=== PATIENT | female | born 1950 ===

== ENCOUNTER → 2018-11-16 | Outpatient (CLI) | payer MEDICARE ==
[2018-11-17 14:39] LABS: Adenovirus F 40/41 Not Detected (NOT DETECT); Astrovirus Not Detected (NOT DETECT); Campylobacter Sp Not Detected (NOT DETECT); Cryptosporidium Not Detected (NOT DETECT); Cyclospora Cayetanensis Not Detected (NOT DETECT); E. Coli O157 Not Detected (NOT DETECT); Entamoeba Histolytica Not Detected (NOT DETECT); Enteroaggregative E. coli-EAEC Not Detected (NOT DETECT); Enteropathogenic E. coli-EPEC Not Detected (NOT DETECT); Enterotoxigenic E. coli-ETEC Not Detected (NOT DETECT); Giardia Lamblia Not Detected (NOT DETECT); Norovirus GI/GII Not Detected (NOT DETECT); Plesiomonas Shigelloides Not Detected (NOT DETECT); Rotavirus A Not Detected (NOT DETECT); Salmonella Sp Not Detected (NOT DETECT); Sapovirus Not Detected (NOT DETECT); Shiga Toxin-prod E. coli-STEC Not Detected (NOT DETECT); Shigella/Enteroin E. coli-EIEC Not Detected (NOT DETECT); Vibrio Cholerae Not Detected (NOT DETECT); Vibrio Sp Not Detected (NOT DETECT); Yersinia Enterocolitica Not Detected (NOT DETECT)
== END | disposition home or self-care (01) ==
LOC: LAB SHORT 07:53 → LAB 07:53 → LAB SHORT 11-17 07:53 → LAB FUT 11-16 17:20
PROVIDERS: Internal Medicine Gastroenterology
DX: K50.90 Crohn's disease, unspecified, without complications (principal)
CPT/HCPCS: 83993; 87507

== ENCOUNTER 2019-08-14 19:47 | Emergency (ER) | payer MEDICARE ==
[~2019-08-14] VITALS: Ht 177.8 cm; Wt 63.5 kg
[2019-08-14] MEDS ORDERED: LEVALBUTEROL TA15 GM (21:16)
[2019-08-14] MEDS ORDERED: SPIRIVA RESPIMAT4 GM IH (21:16)
[2019-08-14] MEDS ORDERED: TRAM50 (21:16)
== END 2019-08-14 21:53 | disposition home or self-care (01) ==
LOC: ER 19:47
DX: G43.909 Migraine, unspecified, not intractable, without status migrainosus (principal); Z88.2 Allergy status to sulfonamides; Z88.5 Allergy status to narcotic agent; Z79.899 Other long term (current) drug therapy
CPT/HCPCS: 36415; 96374; 96375; 99283-25; J0780; J1200; J1885; J7030

== ENCOUNTER 2020-05-17 16:42 | Emergency (ER) | payer MEDICARE ==
[~2020-05-17] VITALS: Ht 175.3 cm; Wt 73.5 kg
[~2020-05-17 16:42] MED LIST: ALBU90OI; AZIT250 PO; Imuran50 MG PO; LEVALBUTEROL TA15 GM; RIZATRIPTAN10 MG; SPIRIVA RESPIMAT4 GM IH; TRAM50; VITAMIN D-32000 UNIT PO
[2020-05-17 18:04] LABS: BASOPHILS ABSOLUTE AUTO 0.07 K/mm3 (0.00-0.23); BASOPHILS PERCENT AUTO 0 % (0-2); EOSINOPHILS PERCENT AUTO 1 % (0-6); Hematocrit 38.5 % (33.0-51.0); Hemoglobin 12.4 g/dL (11.5-16.0); IMMATURE GRAN ABSOLUTE AUTO 0.64 K/mm3 (0.00-0.10); IMMATURE GRAN PERCENT AUTO 4 % (0-1); LYMPHOCYTES ABSOLUTE AUTO 1.58 K/mm3 (0.84-5.20); LYMPHOCYTES PERCENT AUTO 9 % (21-46); MONOCYTES PERCENT AUTO 4 % (4-13); Mean Corpuscular HGB 30.5 pg (26.0-34.0); Mean Corpuscular HGB Conc 32.2 g/dL (31.5-36.5); Mean Corpuscular Volume 95 fL (80-100); NEUTROPHILS ABSOLUTE AUTO 14.44 K/mm3 (1.96-9.15); NEUTROPHILS PERCENT AUTO 82 % (41-73); Platelet Count 259 K/mm3 (150-400); RDW Coefficient Variation 12.5 % (11.7-14.2); RDW Standard Deviation 43.2 fL (35.1-46.3); Red Blood Cell Count 4.07 M/mm3 (3.80-5.20); White Blood Cell Count 17.53 K/mm3 (4.00-11.30)
[2020-05-17 18:17] LABS: Albumin, Blood 3.3 g/dL (3.4-5.0); Albumin/Globulin Ratio 0.9 (0.8-1.8); Bilirubin, Total 0.3 mg/dL (0.1-1.0); Calcium, Blood 8.4 mg/dL (8.5-10.1); Creatinine, Blood 1.3 mg/dL (0.40-1.00); Globulin, Blood 3.7 g/dL (2.2-4.0); Magnesium, Blood 2.2 mg/dL (1.6-2.4); Potassium, Blood 3.6 mmol/L (3.5-5.5)
[2020-05-17] MEDS ORDERED: IMITREX100 MG PO (19:56)
== END 2020-05-17 23:29 | disposition short-term general hospital (02) ==
LOC: ER 16:42
PROVIDERS: Emergency Medicine
DX: S32.402A Unspecified fracture of left acetabulum, initial encounter for closed fracture (principal); R56.9 Unspecified convulsions; Z86.69 Personal history of other diseases of the nervous system and sense organs; Z20.828 Contact with and (suspected) exposure to other viral communicable diseases; Z87.891 Personal history of nicotine dependence; X58.XXXA Exposure to other specified factors, initial encounter; Y92.810 Car as the place of occurrence of the external cause
CPT/HCPCS: 36415; 70450; 71045; 72192; 73502; 80053; 83605; 83735; 85025; 93005; 93010; 96365; 96375; 96376; 99285-25; J1170; J1953; J2060; J2405; U0002